=== PATIENT | male | born 1955 | race Caucasian/White ===

== ENCOUNTER 2022-04-04 08:10 | Outpatient (CLI) | payer OTHER ==
[2022-04-04 08:48] LABS: Estimated GFR-MDRD - POC Greater than 90
[2022-04-04] MEDS ORDERED: Iopamidol-370 76% 500 ML 1 ML ONE (09:25)
== END 2022-04-04 08:11 | disposition home or self-care (01) ==
LOC: BICCT 08:10
PROVIDERS: ATTEND Internal Medicine
DX: R10.30 Lower abdominal pain, unspecified (principal); R82.90 Unspecified abnormal findings in urine; K76.0 Fatty (change of) liver, not elsewhere classified; K57.30 Diverticulosis of large intestine without perforation or abscess without bleeding; Z90.49 Acquired absence of other specified parts of digestive tract
CPT/HCPCS: 74178; 82565